=== PATIENT | female | born 1980 ===

== ENCOUNTER 2025-03-30 06:06 | Day surgery (SDC) | payer OTHER, SELFPAY ==
[2025-03-30 12:04] VITALS: BMI 58.3
[2025-03-30 12:05] VITALS: BP 159/84
--- NOTE | 2025-03-30 12:31 | PTCARENOTE ---
1 unsuccessful IV stick by Tania FREY. IV team called. Will monitor patient.
[2025-03-30] MEDS: NORMOSOL-R/PLASMALYTE-A 1000 IV (12:47)
[2025-03-30 14:26] VITALS: BP 133/76; BP 159/84
[2025-03-30 14:30] VITALS: BP 137/76
[2025-03-30 14:44] VITALS: BP 135/77
[2025-03-30 15:00] VITALS: BP 141/81
[2025-03-30 15:16] VITALS: BP 150/86
== END 2025-03-30 15:24 | disposition home or self-care (01) ==
LOC: SDS 06:06
PROVIDERS: ATTENDING PHYSICIAN Orthopaedic Surgery Hand Surgery
DX: G56.01 Carpal tunnel syndrome, right upper limb (principal); G47.30 Sleep apnea, unspecified; I10 Essential (primary) hypertension; E66.01 Morbid (severe) obesity due to excess calories; Z68.43 Body mass index [BMI] 50.0-59.9, adult
CPT/HCPCS: 64721

== ENCOUNTER 2025-06-30 06:14 | Day surgery (SDC) | payer OTHER, SELFPAY ==
[2025-06-30 13:04] VITALS: BMI 56.8
[2025-06-30 13:07] VITALS: BMI 56.8
[2025-06-30 13:10] VITALS: BP 131/75
[2025-06-30] MEDS: NORMOSOL-R/PLASMALYTE-A 1000 IV (13:21)
[2025-06-30 14:30] VITALS: BP 114/68
[2025-06-30 14:45] VITALS: BP 127/81
== END 2025-06-30 15:00 | disposition home or self-care (01) ==
LOC: SDS 06:14
PROVIDERS: ATTENDING PHYSICIAN Orthopaedic Surgery Hand Surgery
DX: G56.02 Carpal tunnel syndrome, left upper limb (principal); E66.9 Obesity, unspecified
CPT/HCPCS: 64721